=== PATIENT | female | born 1940 | race Caucasian/White ===

== ENCOUNTER 2025-05-07 17:35 | Inpatient (IN) ==
[2025-05-07 18:23] LABS: Hematocrit (blood only) 32.8 % (37.0-47.0); Hemoglobin 10.8 g/dl (12.0-16.0); Immature Granulocytes # (auto) 0.02 K/uL (0.01-0.20); Immature Granulocytes % (auto) 0.2 %; Mean Corpuscular Hemoglobin 28.3 pg (25.0-34.0); Mean Corpuscular Volume 86.1 fL (80.0-100.0); Platelet Count 172 K/uL (130-400); RDW Standard Deviation 56.1 fL (36.4-46.3); Red Blood Count 3.81 M/uL (4.20-5.40); White Blood Count 8.24 K/ul (4.8-10.8)
[2025-05-07 18:41] LABS: Alanine Aminotransferase 17 U/L (7-52); Albumin Globulin Ratio 0.7 (0.9-2); Alkaline Phosphatase 73 U/L (34-104); Anion Gap 7 (3-11); Bilirubin,Total 0.7 mg/dl (0.2-1.0); Blood Urea Nitrogen 13 mg/dl (6-23); Calcium 8.9 mg/dl (8.6-10.3); Carbon Dioxide 27 mmol/L (21-32); Chloride 103 mmol/L (98-107); Globulin 4.4 gm/dl (2.5-4.0); Glucose 114 mg/dl (70-99(Fasting)); Potassium 3.3 mmol/L (3.5-5.1); Sodium 137 mmol/L (136-145); Total Protein 7.6 gm/dl (6.0-8.3)
--- NOTE | 2025-05-07 19:28 | XRay Report ---
Clinical History: Fever Technique: A frontal view of the chest was obtained Findings: There are no confluent pulmonary infiltrates. The heart size is within normal limits. No pleural effusion or pneumothorax is seen. There is mild bilateral lung base atelectasis No fracture is noted. There is mild thoracic scoliosis and degenerative disc disease Impression: Mild bilateral lung base atelectasis Electronically signed by aFrhan Mitchell 05-07-2025 7:27 PM
--- NOTE | 2025-05-07 20:02 | Emergency Department Note ---
Impression & Plan Acute pyelonephritis, Fever, Weakness, Anemia ED Provider Note NAME: GREGG THURMAN AGE: 84 SEX: F : 1940 ARRIVES VIA: Walk-In INFORMANT: Patient ED PROVIDER(S): Sarabjit Maldonado DO CHIEF COMPLAINT: Fever HPI: Patient is an 84-year-old female who presents to the ER for cough, congestion, and runny nose which started yesterday and combination with a fever today. Patient was given Tylenol. Denies any headache or loss of vision. No chest pain or shortness of breath. No belly pain. Does have diarrhea. No dysuria, urgency, or frequency. No other exacerbating or remitting factors. ADDITIONAL HISTORY OBTAINED: Family notes that she has a wound on her head which is healing Chronic Medical/Social Conditions Affecting Care: Per HPI PAST MEDICAL HISTORY:See Below PAST SURGICAL HISTORY:See Below FAMILY HISTORY:See Below SOCIAL HISTORY:See Below HOME MEDICATIONS:See Below ALLERGIES:See Below VITALS:See Below PHYSICAL EXAMINATION: GENERAL: Sitting up in bed, alert, well appearing, well nourished, no distress, non-toxic HEAD: NC/AT with a chronic wound without surrounding erythema induration or drainage EYE EXAM: normal conjunctiva. OROPHARYNX: mucous membranes are moist NECK: supple, no nuchal rigidity, no adenopathy, non-tender LUNGS: Clear to auscultation. Normal chest wall mechanics HEART: no murmurs, S1 normal and S2 normal ABDOMEN: abdomen soft, non-tender, normo-active bowel sounds, no masses, no rebound or guarding. UPPER EXTREMITIES: upper extremities are grossly normal. LOWER EXTREMITIES: No pitting edema. NEURO EXAM: Normal sensorium, cranial nerves II-XII grossly intact, normal speech, no gross weakness of arms, no gross weakness of legs. MEDICAL DECISION MAKING: Patient is an 84-year-old female who presents to the ER who presents to the ER for the above-stated complaint. IV was established and blood work was obtained. Labs showed no significant leukocytosis. Mild anemia 10.8. BMP with mild hypokalemia at 3.3. LFTs bilirubin was reassuring. UA consistent with UTI with nitrates leuks whites and +3 bacteria. Viral panel was negative. CT shows pyelonephritis. Patient was given 2 g of IV Rocephin. Case was discussed with the hospitalist for further evaluation management and treatment. Portable AP upright 1 view of the chest shows no focal Lutrate. Consults/Care Managements Discussions: Per MDM Triage Nursing notes reviewed. Limited review of prior medical records performed Vital Signs: reviewed and remarkable for no significant abnormalities Differential diagnosis: Viral syndrome, otitis, pharyngitis, pneumonia, influenza, meningitis, urinary tract infection, sepsis, bacteremia, as well as other pathologies. ER treatment provided: See below Diagnostics interpreted by me include EKG and cardiac monitoring as listed below: -Cardiac Monitoring: An order was placed for continuous cardiac monitoring. The monitor shows a rate of 85 with sinus rhythm. -ECG: none -Laboratory studies:Interpreted by me as stated above in MDM and shown below. Imaging studies: Xrays: As interpreted by me: Portable AP upright 1 view of the chest shows no focal joint CTs show: CT abdomen pelvis shows pyelonephritis Procedures:none Critical Care: None Past Med/Surg History Problem List (Updated 05/08/25 @ 00:08 by Sarabjit Maldonado DO) Anemia (Acute) Weakness (Acute) Fever (Acute) Acute pyelonephritis (Acute) Social History Smoking Status: Never smoker Preferred Language: Nepali Feels Safe at Home: Yes Results & Data (ED) Vital Signs Vital Signs - 24 hr 05/07/25 17:39 05/07/25 19:54 05/07/25 19:54 Temperature 36.8 C Temperature Source Oral Pulse Rate 87 Pulse Rate [Right Finger] 88 Pulse Rhythm [Right Finger] Regular Pulse Strength [Right Finger] Normal Respiratory Rate 22 18 Respiratory Effort / Characteristics Non-Labored Spontaneous Non-Labored Spontaneous Respiratory Depth Normal Normal Respiratory Pattern Regular Blood Pressure 127/78 Blood Pressure [Right Arm] 138/69 Blood Pressure Mean 94 Blood Pressure Mean [Right Arm] 92 Blood Pressure Position [Right Arm] Lying Pulse Oximetry 98 Oxygen Delivery Method Room Air Room Air Room Air Sepsis Recent Fever Within 48 Hours Yes Sepsis New/Unexplained Change in Mental Status No Sepsis Action Taken by Nursing No Action Required 05/07/25 20:09 05/07/25 21:00 05/07/25 21:13 Temperature 37.2 C Temperature Source Oral Pulse Rate 87 Pulse Rate [Right Finger] 98 H Pulse Rhythm [Right Finger] Regular Pulse Strength [Right Finger] Normal Respiratory Rate 25 H Respiratory Effort / Characteristics Non-Labored Spontaneous Respiratory Depth Normal Respiratory Pattern Regular Blood Pressure Blood Pressure [Right Arm] 142/74 H Blood Pressure Mean Blood Pressure Mean [Right Arm] 96 Blood Pressure Position [Right Arm] Lying Pulse Oximetry 93 Oxygen Delivery Method Room Air Sepsis Recent Fever Within 48 Hours Sepsis New/Unexplained Change in Mental Status Sepsis Action Taken by Nursing Laboratory Data 05/07/25 17:58 05/07/25 17:58 Lab Results 05/07/25 05/07/25 05/07/25 Range/Units 17:58 19:54 Unknown WBC 8.24 (4.8-10.8) K/ul RBC 3.81 L (4.20-5.40) M/uL Hgb 10.8 L (12.0-16.0) g/dl Hct 32.8 L (37.0-47.0) % MCV 86.1 (80.0-100.0) fL MCH 28.3 (25.0-34.0) pg MCHC 32.9 (32.0-36.0) g/dL RDW Std Deviation 56.1 H (36.4-46.3) fL RDW Coeff of Maciel 17.7 H (11.5-14.5) % Plt Count 172 (130-400) K/uL MPV 10.8 (9.4-12.4) fL Immature Gran % (Auto) 0.2 % Neut % (Auto) 64.8 % Lymph % (Auto) 21.4 % [place] % (Auto) 13.2 % Eos % (Auto) 0.2 % Baso % (Auto) 0.2 % Neut # (Auto) 5.33 (1.40-6.50) K/uL Lymph # (Auto) 1.76 (1.20-3.40) K/uL [place] # (Auto) 1.09 H (0.11-0.59) K/uL Eos # (Auto) 0.02 (0.00-0.50) K/uL Baso # (Auto) 0.02 (0.00-0.20) K/uL Immature Gran # (Auto) 0.02 (0.01-0.20) K/uL Sodium 137 (136-145) mmol/L Potassium 3.3 L (3.5-5.1) mmol/L Chloride 103 (98-107) mmol/L Carbon Dioxide 27 (21-32) mmol/L Anion Gap 7 (3-11) BUN 13 (6-23) mg/dl Creatinine 1.10 (0.6-1.2) mg/dl Est Cr Clr Drug Dosing Not Reportable eGFR 49.24 BUN/Creatinine Ratio 11.8 (10-20) Glucose 114 H (70-99(Fasting)) mg/dl Calcium 8.9 (8.6-10.3) mg/dl Total Bilirubin 0.7 (0.2-1.0) mg/dl AST 24 (13-39) U/L ALT 17 (7-52) U/L Alkaline Phosphatase 73 (34-104) U/L Total Protein 7.6 (6.0-8.3) gm/dl Albumin 3.2 L (3.4-5.0) gm/dl Globulin 4.4 H (2.5-4.0) gm/dl Albumin/Globulin Ratio 0.7 L (0.9-2) Urine Color Yellow Urine Appearance Cloudy A (Clear) Urine pH 7.0 (4.5-7.5) Ur Specific [place] 1.036 H (1.000-1.030) Urine Protein 2+ H (Negative) Urine Glucose (UA) Negative (Negative) Urine Ketones Trace H (Negative) Urine Blood 3+ H (Negative) Urine Nitrite Positive A (Negative) Urine Bilirubin Negative (Negative) Urine Urobilinogen Negative (Negative) Ur Leukocyte Esterase 3+ H (Negative) Urine WBC (Auto) >50 H (0-5) /hpf Urine RBC (Auto) >20 H (0-2) /hpf U Hyaline Cast (Auto) 3-5 H (0-2) /lpf U Epithel Cells (Auto) 0-2 (0-2) /hpf Urine Bacteria (Auto) 3+ H (None Seen) Urine Comment Adenovirus (PCR) Not Detected (NotDetected) B. pertussis DNA (PCR) Not Detected (NotDetected) B.parapertussis DNA PCR Not Detected (NotDetected) C. pneumoniae DNA (PCR) Not Detected (NotDetected) Coronavirus OC43 (PCR) Not Detected (NotDetected) Coronavirus HKU1 (PCR) Not Detected (NotDetected) Coronavirus 229E (PCR) Not Detected (NotDetected) SARS-CoV-2 (PCR) Not Detected (NotDetected) Coronavirus NL63 (PCR) Not Detected (NotDetected) Human Metapneumovir PCR Not Detected (NotDetected) Influenza Type A (PCR) Not Detected (NotDetected) Influenza Type B (PCR) Not Detected (NotDetected) M. pneumoniae (PCR) Not Detected (NotDetected) Parainfluenza 1 (PCR) Not Detected (NotDetected) Parainfluenza 2 (PCR) Not Detected (NotDetected) Parainfluenza 3 (PCR) Not Detected (NotDetected) Parainfluenza 4 (PCR) Not Detected (NotDetected) RSV (PCR) Not Detected (NotDetected) Entero/Rhino (PCR) Not Detected (NotDetected) Administered Medications Discontinued Medications Sodium Chloride (Nss) 1,000 mls @ 999 mls/hr IV .Q1H1M ONE Stop: 05/07/25 20:54 Last Admin: 05/07/25 20:15 Dose: 999 mls/hr Documented By: NORM Ioversol (Optiray 320 100ml) 94 ml IV ONCE ONE Stop: 05/07/25 20:59 Last Admin: 05/07/25 20:59 Dose: 94 ml Documented By: REGINO Imaging Data Radiologist's Impression: Chest X-Ray 05/07/25 17:43 Clinical History: Fever Technique: A frontal view of the chest was obtained Findings: There are no confluent pulmonary infiltrates. The heart size is within normal limits. No pleural effusion or pneumothorax is seen. There is mild bilateral lung base atelectasis No fracture is noted. There is mild thoracic scoliosis and degenerative disc disease Impression: Mild bilateral lung base atelectasis Electronically signed by Farhan Mitchell 05-07-2025 7:27 PM Abdomen/Pelvis CT 05/07/25 19:54 Exam(s): CT ABDOMEN + PELVIS With Contrast IV Amt: 94ml EXAM: CT Abdomen and Pelvis With Intravenous Contrast CLINICAL HISTORY: Reason for exam: fever. TECHNIQUE: Axial computed tomography images of the abdomen and pelvis with intravenous contrast. CTDI is 13.85 mGy and DLP is 717.14 mGy-cm. Automated exposure control was utilized for the study. A dose lowering technique was utilized adhering to the principles of ALARA. CONTRAST: Patient received 94ml of IV contrast COMPARISON: No relevant prior studies available. FINDINGS: Lung bases: Unremarkable. No mass. No consolidation. ABDOMEN: Liver: Hepatomegaly. Gallbladder and bile ducts: Cholelithiasis without evidence acute cholecystitis. No ductal dilation. Pancreas: Unremarkable. No mass. No ductal dilation. Spleen: Unremarkable. No splenomegaly. Adrenals: Unremarkable. No mass. Kidneys and ureters: Subtle areas of reduced enhancement involving the upper and lower poles of the right kidney consistent with pyelonephritis. Subtle inflammatory changes about the right renal collecting system also concerning for pyelonephritis. Simple numerous left-sided renal cysts measuring up to 6.3 cm in the lower pole left kidney. 2.2 cm right renal cyst. No follow-up of this simple cyst is necessary. No left-sided hydroureteronephrosis. Stomach and bowel: Diverticulosis without evidence of diverticulitis . No obstruction. No mucosal thickening. PELVIS: Appendix: No findings to suggest acute appendicitis. Bladder: Unremarkable. No mass. Reproductive: Unremarkable as visualized. Subperitoneal space: Unremarkable. There are a number of surgical clips in the dependent pelvis in the presacral space. ABDOMEN and PELVIS: Intraperitoneal space: Unremarkable. No free air. No significant fluid collection. Bones/joints: No acute fracture. No dislocation. Soft tissues: Unremarkable. Vasculature: Unremarkable. No abdominal aortic aneurysm. Lymph nodes: Unremarkable. No enlarged lymph nodes. IMPRESSION: Probable right-sided pyelonephritis. Clinical correlation recommended Numerous bilateral renal cysts Cholelithiasis without CT evidence of acute cholecystitis Hepatomegaly Diverticulosis without evidence of diverticulitis Electronically signed by: Sarabjit Mckeon MD 05/07/25 23:24 PM Discharge Plan Visit Data Chief Complaint: Fever Stated Complaint: FEVER, LOW BP, FAST HEART RATE, DIARRHEA ED Provider: Sarabjit Maldonado Discharge Problem: Acute pyelonephritis, Fever, Weakness, Anemia Condition: Fair Forms Stand Alone Forms: [facility] Referrals Referrals: PCP,NO [Physician] - Discharge Problem: Fever Qualifiers: Fever type: unspecified Qualified Code(s): R50.9 - Fever, unspecified Anemia Qualifiers: Anemia type: unspecified type Qualified Code(s): D64.9 - Anemia, unspecified
[2025-05-07] MEDS: SODIUM CHLORIDE 0.9% 1,000 ML IV ONE (20:15)
[2025-05-07] MEDS: OPTIRAY 320 100ml IV ONE (20:59)
[2025-05-07 22:23] LABS: Appearance Urine Cloudy (Clear); Bacteria Urine Automated 3+ (None Seen); Epithelial Cell Urine Auto 0-2 /hpf (0-2); Glucose Urine UA Negative (Negative); RBC Urine Automated >20 /hpf (0-2); WBC Urine Automated >50 /hpf (0-5)
[2025-05-07 22:30] LABS: Chlamydia pneumoniae PCR Not Detected (NotDetected); Coronavirus 229E PCR Not Detected (NotDetected); Coronavirus CoV-2 (COVID19)PCR Not Detected (NotDetected); Coronavirus HKU1 PCR Not Detected (NotDetected); Coronavirus NL63 PCR Not Detected (NotDetected); Coronavirus OC43PCR Not Detected (NotDetected); Human Metapneumovirus PCR Not Detected (NotDetected); Parainfluenza Virus 1 PCR Not Detected (NotDetected); Parainfluenza Virus 2 PCR Not Detected (NotDetected); Parainfluenza Virus 3 PCR Not Detected (NotDetected); Parainfluenza Virus 4 PCR Not Detected (NotDetected); Respiratory Syncytial VirusPCR Not Detected (NotDetected); Rhinovirus/Enterovirus PCR Not Detected (NotDetected)
--- NOTE | 2025-05-07 23:25 | CT Scan Report ---
Exam(s): CT ABDOMEN + PELVIS With Contrast IV Amt: 94ml EXAM: CT Abdomen and Pelvis With Intravenous Contrast CLINICAL HISTORY: Reason for exam: fever. TECHNIQUE: Axial computed tomography images of the abdomen and pelvis with intravenous contrast. CTDI is 13.85 mGy and DLP is 717.14 mGy-cm. Automated exposure control was utilized for the study. A dose lowering technique was utilized adhering to the principles of ALARA. CONTRAST: Patient received 94ml of IV contrast COMPARISON: No relevant prior studies available. FINDINGS: Lung bases: Unremarkable. No mass. No consolidation. ABDOMEN: Liver: Hepatomegaly. Gallbladder and bile ducts: Cholelithiasis without evidence acute cholecystitis. No ductal dilation. Pancreas: Unremarkable. No mass. No ductal dilation. Spleen: Unremarkable. No splenomegaly. Adrenals: Unremarkable. No mass. Kidneys and ureters: Subtle areas of reduced enhancement involving the upper and lower poles of the right kidney consistent with pyelonephritis. Subtle inflammatory changes about the right renal collecting system also concerning for pyelonephritis. Simple numerous left-sided renal cysts measuring up to 6.3 cm in the lower pole left kidney. 2.2 cm right renal cyst. No follow-up of this simple cyst is necessary. No left-sided hydroureteronephrosis. Stomach and bowel: Diverticulosis without evidence of diverticulitis . No obstruction. No mucosal thickening. PELVIS: Appendix: No findings to suggest acute appendicitis. Bladder: Unremarkable. No mass. Reproductive: Unremarkable as visualized. Subperitoneal space: Unremarkable. There are a number of surgical clips in the dependent pelvis in the presacral space. ABDOMEN and PELVIS: Intraperitoneal space: Unremarkable. No free air. No significant fluid collection. Bones/joints: No acute fracture. No dislocation. Soft tissues: Unremarkable. Vasculature: Unremarkable. No abdominal aortic aneurysm. Lymph nodes: Unremarkable. No enlarged lymph nodes. IMPRESSION: Probable right-sided pyelonephritis. Clinical correlation recommended Numerous bilateral renal cysts Cholelithiasis without CT evidence of acute cholecystitis Hepatomegaly Diverticulosis without evidence of diverticulitis Electronically signed by: Sarabjit Mckeon MD 05/07/25 23:24 PM
[2025-05-08] MEDS: cefTRIAXone SODIUM 2,000 MG/50 ML BAG IV STA (00:03)
--- NOTE | 2025-05-08 02:30 | History & Physical Report ---
Date of Service May 08, 2025 Assessment & Plan (1) Acute pyelonephritis: Plan: 84-year-old female unassigned patient who recently moved to [place] from [facility] (Formerly [facility]) with past medical history significant for A-fib, venous sufficiency and lower extremity edema, history of colon cancer s/p surgery about 40 years ago presents with fever and found to have UTI and pyelonephritis. Patient states she lives alone. Daughter lives in [place]. Ambulates with a walker. Today she was having high fever around 104 F and came to the hospital. Past couple of days she is having some runny nose and cough. Denies any headache. Denies any chest pain or shortness of breath. Has some nausea. No abdominal pain. Had one large bowel movement and somewhat loose yesterday. Denies any blood in stool. Denies any burning micturition. Denies any blood in the urine. Currently hemodynamics are okay. Feeling cold. Acute pyonephritis and possible early sepsis On right side Came with high fever. Was tachycardic And some cold symptoms Respiratory bio fire negative UA is positive and CAT scan showing right pyonephritis Received Rocephin in the ER which will be continued IV fluids Will follow the cultures Close monitor A-fib Eliquis Not on any rate controlling medications Venous insufficiency Lower extremity edema On Lasix Anemia Hemoglobin 10.8 Will follow stool for Hemoccult Iron studies, vitamin B12 folate levels History of colon cancer S/p surgery about 40 years ago DVT prophylaxis Eliquis Disposition Med/telemetry Full code. History of Present Illness Chief Complaint: Acute UTI and pyelonephritis Primary Care Provider: [facility] 84-year-old female unassigned patient who recently moved to [place] from [facility] ([facility]) with past medical history significant for A-fib, venous sufficiency and lower extremity edema, history of colon cancer s/p surgery about 40 years ago presents with fever and found to have UTI and pyelonephritis. Patient states she lives alone. Daughter lives in [place]. Ambulates with a walker. Today she was having high fever around 104 F and came to the hospital. Past couple of days she is having some runny nose and cough. Denies any headache. Denies any chest pain or shortness of breath. Has some nausea. No abdominal pain. Had one large bowel movement and somewhat loose yesterday. Denies any blood in stool. Denies any burning micturition. Denies any blood in the urine. Currently hemodynamics are okay. Feeling cold. Past medical history. As mentioned above Past surgical history. Appendectomy. Colon surgery for colon cancer about 40 years ago. Social history. No smoking. No alcohol use. Family history. Father had colon cancer. Allergies Allergy/AdvReac Type Severity Reaction Status Date / Time latex Allergy Redness of Verified 05/08/25 00:37 Skin Home Medications Medication Instructions Recorded Confirmed Type acetaminophen 325 mg tablet 650 mg PO Q4 PRN Fever Or Pain 05/08/25 05/08/25 History (Tylenol) apixaban 5 mg tablet (Eliquis) 5 mg PO BID 05/08/25 05/08/25 History ascorbic acid (vitamin C) 500 mg 500 mg PO DAILY 05/08/25 05/08/25 History tablet cholecalciferol (vitamin D3) 50 50 mcg PO DAILY 05/08/25 05/08/25 History mcg (2,000 unit) tablet (Vitamin D3) furosemide 20 mg tablet 20 mg PO QAM 05/08/25 05/08/25 History rfkqvxfg-arlifdny-omw C 250 1 tab PO DAILY 05/08/25 05/08/25 History mg-herbal no.124 11.66 mg chewable tablet (Airborne Gummy) sennosides 8.6 mg-docusate sodium 1 tab PO HS 05/08/25 05/08/25 History 50 mg tablet (Senna Plus) Past Med/Surg History Problem List (Updated 05/08/25 @ 00:08 by Sarabjit Maldonado DO) Anemia (Acute) Weakness (Acute) Fever (Acute) Acute pyelonephritis (Acute) Social History Smoking Status: Never smoker Hx Alcohol Use: Yes Hx Substance Use: No Preferred Language: Citizen Of [place] Communication Ability: Effective Knotter Hand Required: No Beliefs That Will Affect Care: None Current Living Situation: Personal Care Facility Other Information That Helps Us Care for You: No Feels Safe at Home: Yes Assistive Devices: Glasses and Walker Review of Systems Review of Systems: All systems reviewed & are unremarkable except as noted in HPI & below Physical Exam Physical Exam: General- Not in distress Head- atraumatic Eyes- PERRL. ENT- oropharynx dry Neck- supple, no JVD. Lungs- clear to auscultation no wheezing or crackles Heart- regular rate and rhythm; no murmur, no gallop Abdomen- normal bowel sounds, soft, nontender, no distension Extremities- b/l lower extremity edema present, no obvious erythema seen Neuro- alert, oriented PERRL, no facial palsy; no dysarthria; moves extremities Results & Data Results & Data Vital Signs (Past 12 Hours) Vital Signs Temp Pulse Pulse Resp BP BP Pulse Ox 05/08/25 01:30 144/74 H 05/08/25 01:18 27 H 92 05/08/25 01:15 26 H 93 05/08/25 01:00 99 H 23 93 05/08/25 01:00 141/75 H 05/08/25 01:00 141/75 H 05/08/25 01:00 141/75 H 05/08/25 00:51 95 H 25 H 93 05/08/25 00:48 96 H 26 H 93 05/08/25 00:30 151/74 H 05/08/25 00:21 27 H 94 05/08/25 00:18 99 H 26 H 94 05/08/25 00:12 99 H 05/08/25 00:03 26 H 94 05/08/25 00:00 138/74 05/08/25 00:00 138/74 05/08/25 00:00 138/74 05/07/25 23:57 22 94 05/07/25 23:51 26 H 94 05/07/25 23:45 27 H 93 05/07/25 23:30 135/89 05/07/25 23:30 135/89 05/07/25 23:30 105 H 31 H 94 05/07/25 23:21 93 H 25 H 95 05/07/25 23:12 99 H 26 H 95 05/07/25 23:06 92 H 25 H 96 05/07/25 23:00 134/87 05/07/25 23:00 134/87 05/07/25 23:00 134/87 05/07/25 22:51 90 25 H 95 05/07/25 22:36 94 H 27 H 94 05/07/25 22:30 124/69 05/07/25 22:24 97 H 31 H 93 05/07/25 22:15 98 H 27 H 94 05/07/25 22:03 98 H 24 96 05/07/25 22:00 147/108 H 05/07/25 22:00 147/108 H 05/07/25 22:00 147/108 H 05/07/25 22:00 147/108 H 05/07/25 21:48 97 H 24 94 05/07/25 21:33 99 H 25 H 94 05/07/25 21:30 142/74 H 05/07/25 21:30 142/74 H 05/07/25 21:15 99 H 28 H 95 05/07/25 21:13 37.2 C 05/07/25 21:06 100 H 25 H 95 05/07/25 21:04 171/81 H 05/07/25 21:04 171/81 H 05/07/25 21:04 171/81 H 05/07/25 21:04 171/81 H 05/07/25 21:00 98 H 25 H 142/74 H 93 05/07/25 20:42 93 H 15 96 05/07/25 20:32 96 H 29 H 97 05/07/25 20:30 157/87 H 05/07/25 20:23 90 24 96 05/07/25 20:20 90 27 H 97 05/07/25 20:11 89 25 H 97 05/07/25 20:09 87 05/07/25 20:08 87 23 96 05/07/25 19:54 88 18 138/69 98 05/07/25 19:54 05/07/25 17:39 36.8 C 87 22 127/78 O2 Del Method 05/08/25 01:30 05/08/25 01:18 05/08/25 01:15 05/08/25 01:00 05/08/25 01:00 05/08/25 01:00 05/08/25 01:00 05/08/25 00:51 05/08/25 00:48 05/08/25 00:30 05/08/25 00:21 05/08/25 00:18 05/08/25 00:12 05/08/25 00:03 05/08/25 00:00 05/08/25 00:00 05/08/25 00:00 05/07/25 23:57 05/07/25 23:51 05/07/25 23:45 05/07/25 23:30 05/07/25 23:30 05/07/25 23:30 05/07/25 23:21 05/07/25 23:12 05/07/25 23:06 05/07/25 23:00 05/07/25 23:00 05/07/25 23:00 05/07/25 22:51 05/07/25 22:36 05/07/25 22:30 05/07/25 22:24 05/07/25 22:15 05/07/25 22:03 05/07/25 22:00 05/07/25 22:00 05/07/25 22:00 05/07/25 22:00 05/07/25 21:48 05/07/25 21:33 05/07/25 21:30 05/07/25 21:30 05/07/25 21:15 05/07/25 21:13 05/07/25 21:06 05/07/25 21:04 05/07/25 21:04 05/07/25 21:04 05/07/25 21:04 05/07/25 21:00 Room Air 05/07/25 20:42 05/07/25 20:32 05/07/25 20:30 05/07/25 20:23 05/07/25 20:20 05/07/25 20:11 05/07/25 20:09 05/07/25 20:08 05/07/25 19:54 Room Air 05/07/25 19:54 Room Air 05/07/25 17:39 Room Air Diagnostic Findings Laboratory Results WBC 8.24 K/ul (4.8-10.8) 05/07/25 17:58 RBC 3.81 M/uL (4.20-5.40) L 05/07/25 17:58 Hgb 10.8 g/dl (12.0-16.0) L 05/07/25 17:58 Hct 32.8 % (37.0-47.0) L 05/07/25 17:58 MCV 86.1 fL (80.0-100.0) 05/07/25 17:58 MCH 28.3 pg (25.0-34.0) 05/07/25 17:58 MCHC 32.9 g/dL (32.0-36.0) 05/07/25 17:58 RDW Std Deviation 56.1 fL (36.4-46.3) H 05/07/25 17:58 RDW Coeff of [place]iel 17.7 % (11.5-14.5) H 05/07/25 17:58 Plt Count 172 K/uL (130-400) 05/07/25 17:58 MPV 10.8 fL (9.4-12.4) 05/07/25 17:58 Immature Gran % (Auto) 0.2 % 05/07/25 17:58 Neut % (Auto) 64.8 % 05/07/25 17:58 Lymph % (Auto) 21.4 % 05/07/25 17:58 [place] % (Auto) 13.2 % 05/07/25 17:58 Eos % (Auto) 0.2 % 05/07/25 17:58 Baso % (Auto) 0.2 % 05/07/25 17:58 Neut # (Auto) 5.33 K/uL (1.40-6.50) 05/07/25 17:58 Lymph # (Auto) 1.76 K/uL (1.20-3.40) 05/07/25 17:58 [place] # (Auto) 1.09 K/uL (0.11-0.59) H 05/07/25 17:58 Eos # (Auto) 0.02 K/uL (0.00-0.50) 05/07/25 17:58 Baso # (Auto) 0.02 K/uL (0.00-0.20) 05/07/25 17:58 Immature Gran # (Auto) 0.02 K/uL (0.01-0.20) 05/07/25 17:58 Sodium 137 mmol/L (136-145) 05/07/25 17:58 Potassium 3.3 mmol/L (3.5-5.1) L 05/07/25 17:58 Chloride 103 mmol/L (98-107) 05/07/25 17:58 Carbon Dioxide 27 mmol/L (21-32) 05/07/25 17:58 Anion Gap 7 (3-11) 05/07/25 17:58 BUN 13 mg/dl (6-23) 05/07/25 17:58 Creatinine 1.10 mg/dl (0.6-1.2) 05/07/25 17:58 Est Cr Clr Drug Dosing Not Reportable 05/07/25 17:58 eGFR 49.24 05/07/25 17:58 BUN/Creatinine Ratio 11.8 (10-20) 05/07/25 17:58 Glucose 114 mg/dl (70-99(Fasting)) H 05/07/25 17:58 Calcium 8.9 mg/dl (8.6-10.3) 05/07/25 17:58 Total Bilirubin 0.7 mg/dl (0.2-1.0) 05/07/25 17:58 AST 24 U/L (13-39) 05/07/25 17:58 ALT 17 U/L (7-52) 05/07/25 17:58 Alkaline Phosphatase 73 U/L (34-104) 05/07/25 17:58 Total Protein 7.6 gm/dl (6.0-8.3) 05/07/25 17:58 Albumin 3.2 gm/dl (3.4-5.0) L 05/07/25 17:58 Globulin 4.4 gm/dl (2.5-4.0) H 05/07/25 17:58 Albumin/Globulin Ratio 0.7 (0.9-2) L 05/07/25 17:58 Urine Color Yellow 05/07/25 Unknown Urine Appearance Cloudy (Clear) A 05/07/25 Unknown Urine pH 7.0 (4.5-7.5) 05/07/25 Unknown Ur Specific [place] 1.036 (1.000-1.030) H 05/07/25 Unknown Urine Protein 2+ (Negative) H 05/07/25 Unknown Urine Glucose (UA) Negative (Negative) 05/07/25 Unknown Urine Ketones Trace (Negative) H 05/07/25 Unknown Urine Blood 3+ (Negative) H 05/07/25 Unknown Urine Nitrite Positive (Negative) A 05/07/25 Unknown Urine Bilirubin Negative (Negative) 05/07/25 Unknown Urine Urobilinogen Negative (Negative) 05/07/25 Unknown Ur Leukocyte Esterase 3+ (Negative) H 05/07/25 Unknown Urine WBC (Auto) >50 /hpf (0-5) H 05/07/25 Unknown Urine RBC (Auto) >20 /hpf (0-2) H 05/07/25 Unknown U Hyaline Cast (Auto) 3-5 /lpf (0-2) H 05/07/25 Unknown U Epithel Cells (Auto) 0-2 /hpf (0-2) 05/07/25 Unknown Urine Bacteria (Auto) 3+ (None Seen) H 05/07/25 Unknown Urine Comment 05/07/25 Unknown Adenovirus (PCR) Not Detected (NotDetected) 05/07/25 19:54 B. pertussis DNA (PCR) Not Detected (NotDetected) 05/07/25 19:54 B.parapertussis DNA PCR Not Detected (NotDetected) 05/07/25 19:54 C. pneumoniae DNA (PCR) Not Detected (NotDetected) 05/07/25 19:54 Coronavirus OC43 (PCR) Not Detected (NotDetected) 05/07/25 19:54 Coronavirus HKU1 (PCR) Not Detected (NotDetected) 05/07/25 19:54 Coronavirus 229E (PCR) Not Detected (NotDetected) 05/07/25 19:54 SARS-CoV-2 (PCR) Not Detected (NotDetected) 05/07/25 19:54 Coronavirus NL63 (PCR) Not Detected (NotDetected) 05/07/25 19:54 Human Metapneumovir PCR Not Detected (NotDetected) 05/07/25 19:54 Influenza Type A (PCR) Not Detected (NotDetected) 05/07/25 19:54 Influenza Type B (PCR) Not Detected (NotDetected) 05/07/25 19:54 M. pneumoniae (PCR) Not Detected (NotDetected) 05/07/25 19:54 Parainfluenza 1 (PCR) Not Detected (NotDetected) 05/07/25 19:54 Parainfluenza 2 (PCR) Not Detected (NotDetected) 05/07/25 19:54 Parainfluenza 3 (PCR) Not Detected (NotDetected) 05/07/25 19:54 Parainfluenza 4 (PCR) Not Detected (NotDetected) 05/07/25 19:54 RSV (PCR) Not Detected (NotDetected) 05/07/25 19:54 Entero/Rhino (PCR) Not Detected (NotDetected) 05/07/25 19:54 Impressions Chest X-Ray 05/07/25 17:43 Clinical History: Fever Technique: A frontal view of the chest was obtained Findings: There are no confluent pulmonary infiltrates. The heart size is within normal limits. No pleural effusion or pneumothorax is seen. There is mild bilateral lung base atelectasis No fracture is noted. There is mild thoracic scoliosis and degenerative disc disease Impression: Mild bilateral lung base atelectasis Electronically signed by Farhan Mitchell 05-07-2025 7:27 PM Abdomen/Pelvis CT 05/07/25 19:54 Exam(s): CT ABDOMEN + PELVIS With Contrast IV Amt: 94ml EXAM: CT Abdomen and Pelvis With Intravenous Contrast CLINICAL HISTORY: Reason for exam: fever. TECHNIQUE: Axial computed tomography images of the abdomen and pelvis with intravenous contrast. CTDI is 13.85 mGy and DLP is 717.14 mGy-cm. Automated exposure control was utilized for the study. A dose lowering technique was utilized adhering to the principles of ALARA. CONTRAST: Patient received 94ml of IV contrast COMPARISON: No relevant prior studies available. FINDINGS: Lung bases: Unremarkable. No mass. No consolidation. ABDOMEN: Liver: Hepatomegaly. Gallbladder and bile ducts: Cholelithiasis without evidence acute cholecystitis. No ductal dilation. Pancreas: Unremarkable. No mass. No ductal dilation. Spleen: Unremarkable. No splenomegaly. Adrenals: Unremarkable. No mass. Kidneys and ureters: Subtle areas of reduced enhancement involving the upper and lower poles of the right kidney consistent with pyelonephritis. Subtle inflammatory changes about the right renal collecting system also concerning for pyelonephritis. Simple numerous left-sided renal cysts measuring up to 6.3 cm in the lower pole left kidney. 2.2 cm right renal cyst. No follow-up of this simple cyst is necessary. No left-sided hydroureteronephrosis. Stomach and bowel: Diverticulosis without evidence of diverticulitis . No obstruction. No mucosal thickening. PELVIS: Appendix: No findings to suggest acute appendicitis. Bladder: Unremarkable. No mass. Reproductive: Unremarkable as visualized. Subperitoneal space: Unremarkable. There are a number of surgical clips in the dependent pelvis in the presacral space. ABDOMEN and PELVIS: Intraperitoneal space: Unremarkable. No free air. No significant fluid collection. Bones/joints: No acute fracture. No dislocation. Soft tissues: Unremarkable. Vasculature: Unremarkable. No abdominal aortic aneurysm. Lymph nodes: Unremarkable. No enlarged lymph nodes. IMPRESSION: Probable right-sided pyelonephritis. Clinical correlation recommended Numerous bilateral renal cysts Cholelithiasis without CT evidence of acute cholecystitis Hepatomegaly Diverticulosis without evidence of diverticulitis Electronically signed by: Sarabjit Mckeon MD 05/07/25 23:24 PM Code Status & VTE Plan VTE Prophylaxis Plan VTE Prophylaxis will be ordered: Yes
[2025-05-08] MEDS ORDERED: NITROGLYCERIN SL 0.4 MG/TAB TAB SL PRN (02:40)
[2025-05-08] MEDS: POTASSIUM CHLORIDE 20 MEQ/15 ML UDC PO STA (03:35)
[2025-05-08] MEDS: SODIUM CHLORIDE 0.9% 1,000 ML IV SCH (03:35)
[2025-05-08 04:17] LABS: Hematocrit (blood only) 32.7 % (37.0-47.0); Hemoglobin 10.6 g/dl (12.0-16.0); Immature Granulocytes # (auto) 0.02 K/uL (0.01-0.20); Immature Granulocytes % (auto) 0.2 %; Mean Corpuscular Hemoglobin 28.0 pg (25.0-34.0); Mean Corpuscular Volume 86.5 fL (80.0-100.0); Platelet Count 164 K/uL (130-400); RDW Standard Deviation 56.7 fL (36.4-46.3); Red Blood Count 3.78 M/uL (4.20-5.40); White Blood Count 8.21 K/ul (4.8-10.8)
[2025-05-08 04:32] LABS: Anion Gap 7.0 (3-11); Blood Urea Nitrogen 11.0 mg/dl (6-23); Calcium 8.2 mg/dl (8.6-10.3); Carbon Dioxide 25.0 mmol/L (21-32); Chloride 106.0 mmol/L (98-107); Creatinine Clr Calc Pharmacy 35.6 ml/min; Glucose 137.0 mg/dl (70-99(Fasting)); Magnesium 1.8 mg/dl (1.7-2.4); Potassium 3.5 mmol/L (3.5-5.1); Sodium 138.0 mmol/L (136-145)
[2025-05-08 04:35] LABS: Iron < 10 mcg/dl (35-150); Total Iron Binding Cap Calc 207 mcg/dl (250-450); Transferrin 148 mg/dl (200-360)
[2025-05-08 06:25] LABS: Folate (Folic Acid),Ser orPlas 12.93 ng/ml (>5.38)
[2025-05-08 06:26] LABS: Vitamin B12 409.0 pg/ml (180-914)
[2025-05-08] MEDS: FUROSEMIDE 20 MG TAB PO SCH (08:32)
[2025-05-08] MEDS: ASCORBIC ACID 500 MG TAB PO SCH (08:32)
[2025-05-08] MEDS: APIXABAN 5 MG TABLET PO SCH (08:32)
[2025-05-08] MEDS: CHOLECALCIFEROL 25 MCG (1000 UNITS) TAB PO SCH (08:33)
[2025-05-08] MEDS: ACETAMINOPHEN 325 MG TAB PO PRN (11:27)
--- NOTE | 2025-05-08 13:02 | Hospitalist Progress Note ---
Date of Service May 08, 2025 Assessment & Plan (1) Acute pyelonephritis: Plan: 84-year-old female unassigned patient who recently moved to [place] from [facility] with past medical history significant for A-fib, venous sufficiency and lower extremity edema, history of colon cancer s/p surgery about 40 years ago presents with fever and found to have UTI and pyelonephritis. Acute pyonephritis Patient presented to the hospital with fever. Urinalysis suggestive of infection. CT abdomen pelvis showing right-sided pyelonephritis; tenderness present in right CVA Continue on Rocephin; will follow-up on final culture results. Obtain blood culture Continue IV fluids. Atrial Fibrillation- on eliquis, not on any rate controlling meds.monitor on telemetry Venous insufficiency Lower extremity edema On Lasix- on hold while getting fluids Anemia Hemoglobin 10.8- unknown baseline. Will follow stool for Hemoccult will follow Iron studies, vitamin B12 folate levels History of colon cancer S/p surgery about 40 years ago DVT prophylaxis Eliquis Disposition Med/telemetry Full code. Admission and Anticipated Discharge Date Admission Date: May 08, 2025 Subjective Patient seen and examined at bedside. She is comfortable; not in distress. She reports that she is feeling much better compared to admission. Review of Systems Review of Systems: All systems reviewed & are unremarkable except as noted in Subjective Physical Exam Physical Exam: Constitutional: WD/WN, vitals as above, NAD, sitting up in bed, pleasant, co nversing easily Head:Scar over left temporal aspect of the head; no swelling/redness. Respiratory: normal respiratory effort, lungs clear to auscultation, no wheeze, rales, rhonchi. Normal insp/exp effort, no accessory muscle use Cardiovascular: RRR, no murmur, no edema Vessels: no JVD or carotid bruit Chest: normal inspection of chest Abdomen: Right CVA tenderness present Musculoskeletal: no cyanosis or clubbing, extremities motor strength 5/5 Skin: no rashes, warm and dry normal turgor Neurologic: PERRL, EOMI, accommodation nl, no face palsy, no dysarthria CN's II- XI intact bilaterally and moves all extremities Psychiatric: A+Ox3, euthymic affect Results & Data Results & Data Vital Signs (Past 12 Hours) Vital Signs Temp Pulse Pulse Resp BP BP Pulse Ox 05/08/25 11:33 38.1 C H 97 H 16 135/78 94 05/08/25 07:03 86 05/08/25 06:38 88 20 127/58 L 92 05/08/25 03:56 05/08/25 03:39 37.6 C H 102 H 29 H 93 05/08/25 03:30 104 H 25 H 92 05/08/25 03:18 100 H 29 H 05/08/25 03:00 28 H 91 05/08/25 02:51 28 H 91 05/08/25 02:36 27 H 93 05/08/25 02:30 142/75 H 05/08/25 02:09 26 H 93 05/08/25 02:00 155/75 H 05/08/25 01:57 24 93 05/08/25 01:51 27 H 93 05/08/25 01:48 24 93 05/08/25 01:30 144/74 H 05/08/25 01:18 27 H 92 05/08/25 01:15 26 H 93 Pulse Ox O2 Del Method O2 Del Method 05/08/25 11:33 Room Air 05/08/25 07:03 05/08/25 06:38 Room Air 05/08/25 03:56 98 Room Air 05/08/25 03:39 Room Air 05/08/25 03:30 05/08/25 03:18 05/08/25 03:00 05/08/25 02:51 05/08/25 02:36 05/08/25 02:30 05/08/25 02:09 05/08/25 02:00 05/08/25 01:57 05/08/25 01:51 05/08/25 01:48 05/08/25 01:30 05/08/25 01:18 05/08/25 01:15
[2025-05-08] MEDS: CETIRIZINE HCL 10 MG TABLET PO ONE (14:22)
[2025-05-08] MEDS: CIPROFLOXACIN / D5W 400 MG/200 ML BAG IV SCH (16:04)
[2025-05-08] MEDS ORDERED: cefTRIAXone SODIUM 2,000 MG/50 ML BAG IV SCH (22:00)
[2025-05-09 07:14] LABS: Hematocrit (blood only) 30.8 % (37.0-47.0); Hemoglobin 10.0 g/dl (12.0-16.0); Immature Granulocytes # (auto) 0.02 K/uL (0.01-0.20); Immature Granulocytes % (auto) 0.3 %; Mean Corpuscular Hemoglobin 28.2 pg (25.0-34.0); Mean Corpuscular Volume 87.0 fL (80.0-100.0); Platelet Count 153 K/uL (130-400); RDW Standard Deviation 57.8 fL (36.4-46.3); Red Blood Count 3.54 M/uL (4.20-5.40); White Blood Count 6.75 K/ul (4.8-10.8)
[2025-05-09 07:30] LABS: Anion Gap 5.0 (3-11); Blood Urea Nitrogen 13.0 mg/dl (6-23); Calcium 8.2 mg/dl (8.6-10.3); Carbon Dioxide 25.0 mmol/L (21-32); Chloride 107.0 mmol/L (98-107); Creatinine Clr Calc Pharmacy 33.1 ml/min; Glucose 95.0 mg/dl (70-99(Fasting)); Potassium 3.7 mmol/L (3.5-5.1); Sodium 137.0 mmol/L (136-145)
[2025-05-09 07:49] LABS: Ferritin 142.7 ng/ml (8-388)
[2025-05-09] MEDS: ADVANCED PROBIOTIC 625 MG CAPSULE PO SCH (12:09)
--- NOTE | 2025-05-09 12:57 | Hospitalist Progress Note ---
Date of Service May 09, 2025 Assessment & Plan (1) Acute pyelonephritis: Plan: 84-year-old female unassigned patient who recently moved to [place] from [facility] with past medical history significant for A-fib, venous sufficiency and lower extremity edema, history of colon cancer s/p surgery about 40 years ago presents with fever and found to have UTI and pyelonephritis. Acute pyonephritis Patient presented to the hospital with fever. Urinalysis suggestive of infection. CT abdomen pelvis showing right-sided pyelonephritis; tenderness present in right CVA Urine culture growing E. coli; Blood cultureno growth till date Continue on ciprofloxacin 400 mg twice daily; will need antibiotic for total of 10 days. Follow-up on blood culture Atrial Fibrillation- on eliquis, not on any rate controlling meds.EKG on ad mission showed normal sinus rhythm with PACs Venous insufficiency Lower extremity edema On Lasix- on hold Anemia Hemoglobin 10.8- unknown baseline. monitor History of colon cancer S/p surgery about 40 years ago DVT prophylaxis Eliquis Disposition PT OT evaluation ordered; patient might benefit from home PT OT at discharge. Plan of care discussed with patient's daughter at bedside. Answer questions/queries Time spent evaluating patient, direct bedside care, chart review, placing orders, interpretation of diagnostic studies, discussion with consultants, patient, and family members, as well as other required patient management activities is 50 minutes Please note the above document was generated using voice recognition software. It may contain grammatical, syntax or spelling errors. Any formal questions or concerns about the content, text or information contained within the body of this dictation should be directly addressed to the provider for clarification Admission and Anticipated Discharge Date Admission Date: May 08, 2025 Subjective Patient seen and examined at bedside. Comfortable; not in distress. Denies fever, chills, chest pain, shortness of breath, abdominal pain or urinary symptoms. No significant overnight events Review of Systems Review of Systems: All systems reviewed & are unremarkable except as noted in Subjective Physical Exam Physical Exam: Constitutional: WD/WN, vitals as above, NAD, sitting up in bed, pleasant, conversing easily Head:Scar over left temporal aspect of the head; no swelling/redness. Respiratory: normal respiratory effort, lungs clear to auscultation, no wheeze, rales, rhonchi. Normal insp/exp effort, no accessory muscle use Cardiovascular: RRR, no murmur, no edema Vessels: no JVD or carotid bruit Chest: normal inspection of chest Abdomen: right CVA not tender today Musculoskeletal: no cyanosis or clubbing, extremities motor strength 5/5 Skin: no rashes, warm and dry normal turgor Neurologic: PERRL, EOMI, accommodation nl, no face palsy, no dysarthria CN's II- XI intact bilaterally and moves all extremities Psychiatric: A+Ox3, euthymic affect Results & Data Results & Data Vital Signs (Past 12 Hours) Vital Signs Temp Pulse Pulse Resp BP Pulse Ox O2 Del Method 05/09/25 11:44 37.0 C 85 20 126/79 93 Room Air 05/09/25 07:47 37.3 C 85 18 144/81 H 93 Room Air 05/09/25 07:37 88 05/09/25 02:43 37.0 C 89 20 143/82 H 93 Room Air
--- NOTE | 2025-05-09 17:30 | Electrocardiogram Report ---
Test Reason : Blood Pressure : */* mmHG Vent. Rate : 84 BPM Atrial Rate : 84 BPM P-R Int : 180 ms QRS Dur : 76 ms QT Int : 360 ms P-R-T Axes : 9 22 19 degrees QTcB Int : 425 ms Sinus rhythm with Premature atrial complexes Otherwise normal ECG No previous ECGs available Confirmed by Baltazar Dillard ([id number]) on 05/09/2025 5:30:11 PM Referred By: REFERRED SELF Confirmed By: Baltazar Dillard
[2025-05-10 07:59] VITALS: RESP 20
[2025-05-10 11:58] VITALS: TEMP 97.5; O2SAT 95
--- NOTE | 2025-05-10 12:24 | Discharge Summary ---
Date of Service May 10, 2025 Admission HPI Per Admitting Provider 84-year-old female unassigned patient who recently moved to [place] from [facility] with past medical history significant for A-fib, venous sufficiency and lower extremity edema, history of colon cancer s/p surgery about 40 years ago presents with fever and found to have UTI and pyelonephritis. Patient states she lives alone. Daughter lives in [place]. Ambulates with a walker. Today she was having high fever around 104 F and came to the hospital. Past couple of days she is having some runny nose and cough. Denies any headache. Denies any chest pain or shortness of breath. Has some nausea. No abdominal pain. Had one large bowel movement and somewhat loose yesterday. Denies any blood in stool. Denies any burning micturition. Denies any blood in the urine. Currently hemodynamics are okay. Feeling cold. Past medical history. As mentioned above Past surgical history. Appendectomy. Colon surgery for colon cancer about 40 years ago. Social history. No smoking. No alcohol use. Family history. Father had colon cancer. Admission Exam Per Admitting Provider General- Not in distress Head- atraumatic Eyes- PERRL. ENT- oropharynx dry Neck- supple, no JVD. Lungs- clear to auscultation no wheezing or crackles Heart- regular rate and rhythm; no murmur, no gallop Abdomen- normal bowel sounds, soft, nontender, no distension Extremities- b/l lower extremity edema present, no obvious erythema seen Neuro- alert, oriented PERRL, no facial palsy; no dysarthria; moves extremities Principal Diagnosis Acute right-sided pyelonephritis Discharge Exam Constitutional: WD/WN, vitals as above, NAD, sitting up in bed, pleasant, conversing easily Head:Scar over left temporal aspect of the head; no swelling/redness. Respiratory: normal respiratory effort, lungs clear to auscultation, no wheeze, rales, rhonchi. Normal insp/exp effort, no accessory muscle use Cardiovascular: RRR, no murmur, no edema Vessels: no JVD or carotid bruit Chest: normal inspection of chest Abdomen: right CVA not tender today Musculoskeletal: no cyanosis or clubbing, extremities motor strength 5/5 Skin: no rashes, warm and dry normal turgor Neurologic: PERRL, EOMI, accommodation nl, no face palsy, no dysarthria CN's II- XI intact bilaterally and moves all extremities Psychiatric: A+Ox3, euthymic affect Discharge Data Allergies Allergy/AdvReac Type Severity Reaction Status Date / Time latex Allergy Redness of Verified 05/08/25 00:37 Skin Consultations 05/07/25 23:33 ED Decision to Admit Stat Ordered Studies 05/07/25 19:54 CT Abd and Pelvis [CT abd pelvis IV con only] Stat Hospital Course (1) Acute pyelonephritis: 84-year-old female unassigned patient who recently moved to [place] from [facility] with past medical history significant for A-fib, venous sufficiency and lower extremity edema, history of colon cancer s/p surgery about 40 years ago presents with fever and found to have UTI and pyelonephritis. Acute Right sided pylonephritis Patient presented to the hospital with fever. Urinalysis suggestive of infection. CT abdomen pelvis showing right-sided pyelonephritis; tenderness present in right CVA Urine culture growing E. coli; Blood cultureno growth till date During the hospitalization, patient was treated with IV antibiotics with improvement in pain on right costovertebral angle; patient also did not have any recurrence of fever or chills. She was afebrile for last 48 hours. Based on the sensitivity results; patient was discharged on 7 more days of antibiotics. Please note the above document was generated using voice recognition software. It may contain grammatical, syntax or spelling errors. Any formal questions or concerns about the content, text or information contained within the body of this dictation should be directly addressed to the provider for clarification Total Time Total Time Spent Total Time Spent (In Minutes): 45 Total Time Includes: Examination of the Patient, Discharge Planning, Medication Reconciliation, Communication With Other Providers and Other Discharge Plan Discharge Items Patient Disposition: Home - Self-Care Reason For Visit: ACUTE UTI, EARLY SEPSIS? Discharge Diagnosis: Acute pylonephritis Condition on Discharge: Fair Activity: Resume your previous activity Non-emergency contact: Primary Care Provider Call non-emergency contact if: you have any medication questions and your symptoms worsen [facility] - Diet: Regular Addtl Attending Provider Instructions: You were admitted to the hospital due to infection on the right kidney. You were treated with antibiotic during the hospitalization. You are prescribed ciprofloxacin 500 mg to be taken twice a day for 7 more days. Please take probiotic while you are taking the antibiotics. Dressing change- From crown of head to behind left ear- clean with saline. Cover with Vaseline gauze, cover with 4x4's, apply hat. Change everyday Pending Studies at Discharge: No Stand-Alone Forms: My [facility], Smoking Cessation Medications and DC Order Prescriptions: New Advanced Probiotic 625 mg (10 billion cell) Capsule 2 cap PO DAILY 7 Days Qty: 14 0RF ciprofloxacin HCl 500 mg tablet 500 mg PO BID 7 Days Qty: 14 0RF Continued ascorbic acid (vitamin C) 500 mg Tablet 500 mg PO DAILY furosemide 20 mg Tablet 20 mg PO QAM cholecalciferol (vitamin D3) [Vitamin D3] 50 mcg (2,000 unit) Tablet 50 mcg PO DAILY Eliquis 5 mg Tablet 5 mg PO BID sennosides-docusate sodium [Senna Plus] 8.6-50 mg Tablet 1 tab PO HS acetaminophen [Tylenol] 325 mg Tablet 650 mg PO Q4 PRN (Reason: Fever Or Pain) Airborne Gummy 250-11.66 mg Tablet,Chewable 1 tab PO DAILY Admission Data Admit Date/Time: 05/08/25 02:26 Attending Provider: Yan Hayden Admit Provider: Geo العلي Primary Care Provider[facility] Other Providers: Geo العلي
[2025-05-10 13:20] VITALS: BP 137/82
[2025-05-10 13:52] VITALS: PULSE 89
== END 2025-05-10 14:27 | disposition home or self-care (01) | DRG 872 ==
LOC: ED 17:35 → EDINP 05-08 02:26 → 2N 05-08 02:40